=== PATIENT | female | born 1980 | race Caucasian/White ===

== ENCOUNTER 2021-02-07 08:00 | Outpatient (CLI) | payer OTHER | END 2021-02-07 23:59 | disposition home or self-care (01) | LOC: LAB.N 08:00 | PROVIDERS: ATTEND Family Medicine | DX: R05 Cough (principal); Z20.822 Contact with and (suspected) exposure to COVID-19 ==

== ENCOUNTER 2022-08-28 08:00 | Outpatient (CLI) | payer OTHER ==
[2022-08-28 12:15] LABS: THYROID STIMULATING HORMONE 0.86 uIU/mL (0.34-5.60)
[2022-08-28 12:17] LABS: FREE T4 (FREE THYROXINE) 0.78 ng/dL (0.58-1.64)
== END 2022-08-28 08:15 | disposition home or self-care (01) ==
LOC: LAB.N 08:00
PROVIDERS: ATTEND Specialist
DX: E04.9 Nontoxic goiter, unspecified (principal); J02.9 Acute pharyngitis, unspecified
CPT/HCPCS: 36415; 84439; 84443; 87070